=== PATIENT | male | born 1960 | race Caucasian/White ===

== ENCOUNTER 2019-11-16 06:16 | Day surgery (SDC) | payer OTHER ==
[2019-11-16] MEDS ORDERED: Lidocaine 2% Viscous Solution 15 ML Cup ONE (06:35)
[2019-11-16] MEDS ORDERED: Lidocaine 4% Top Soln 50 ML Bottle ONE (06:35)
[2019-11-16] MEDS ORDERED: Dextrose 5%-Lactated Ringers 1,000 ML IV SCH (07:00)
[2019-11-16] MEDS ORDERED: Glycopyrrolate 0.2 MG/ML 2 ML SDV IVPUSH ONE (07:30)
[2019-11-16] MEDS ORDERED: fentaNYL 100 MCG/2 ML SDV ONE (07:45)
[2019-11-16] MEDS ORDERED: Midazolam 1 MG/ML 2 ML SDV ONE (07:45)
[2019-11-16] MEDS ORDERED: Propofol 200 MG/20 ML SDV ONE ×2 (07:46→08:27)
[2019-11-16] MEDS ORDERED: Lidocaine 4% Top Soln LTA 4 ML Syringe Kit ONE (07:48)
--- NOTE | 2019-11-20 11:15 | OR ---
DATE OF PROCEDURE: 11/16/2019 SURGEON: Stevan Dodge MD PREOPERATIVE DIAGNOSIS: Left upper lobe mass with hilar lymphadenopathy. POSTOPERATIVE DIAGNOSIS: Left upper lobe mass with hilar lymphadenopathy. OPERATIVE PROCEDURES: Flexible bronchoscopy with: 1. Tracheobronchial washings (90961). 2. Brushings of left upper lobe (81247). 3. Bronchoalveolar lavage to left upper lobe (23067). 4. Transbronchial needle aspiration biopsy, left mainstem bronchus node (76197). ANESTHESIA: Topical plus IV sedation. INDICATIONS FOR PROCEDURE: A 59-year-old presenting with a newly identified mass in the left upper lobe. This extends into the hilum and the patient does have some hilar lymphadenopathy including a fairly prominent left mainstem bronchus node which should be amenable to the transbronchial needle aspiration biopsy. Plan is to proceed with flexible bronchoscopy with washings, brushings, and biopsies as indicated. Potential risks including bleeding, aspiration of gastric contents and such were reviewed, and the patient wishes to proceed. DETAILS OF PROCEDURE: The patient was taken to the operating room and placed in a semi- sitting position. IV sedation was administered, after which the translaryngeal injection of lidocaine was placed per Anesthesia. The bronchoscope was then passed through the left side of the nose. Visualized nasopharynx, hypopharynx, and larynx were unremarkable. Cord motion was symmetrical. As one passed into the trachea, there was no significant displacement of the trachea or laxmi. The right tracheobronchial tree was entirely normal. The left tracheobronchial tree was also grossly essentially normal with no visible tumor present and minimal secretions were present. At this point, tracheobronchial washings were obtained. We then obtained some brushings into the left upper lobe and these were sent for cytology. Following this, 200 mL of saline was injected into the left upper lobe and the bronchoalveolar lavage was obtained. This was sent with 2 separate specimens. Finally, transbronchial needle aspiration biopsies were obtained x4 from the area right at the origin of the left mainstem bronchus where the large node was present. Minimal bleeding was noted from that site and the procedure was then concluded. The patient was taken to the recovery room in satisfactory condition. The plan at this point will be to set the patient up for a PET scan. This is presently scheduled for this coming Wednesday. We will await the cytology and biopsy report from today's exam. If this is nondiagnostic, we would set the patient up for a CT-guided needle biopsy of the lung mass which would be fairly easy to accomplish anterior lateral pleural surface in the left lung area. Once we have a histologic diagnosis and the PET scan completed, we will set the patient then up for Medical Oncology consultation. Stevan Dodge MD /[id number]
== END 2019-11-16 10:20 | disposition home or self-care (01) ==
LOC: JP.SDS 06:16
PROVIDERS: ATTEND Surgery
DX: J04.10 Acute tracheitis without obstruction (principal); J20.9 Acute bronchitis, unspecified; J18.9 Pneumonia, unspecified organism; R59.0 Localized enlarged lymph nodes; F17.200 Nicotine dependence, unspecified, uncomplicated
CPT/HCPCS: 31623; 31624; 31645; 87015; 87070; 87077; 87102; 87116; 87205; 87206; 87220; A9270; J2250; J2704; J3010; J3490; J7121; 88112; 88305